=== PATIENT | male | born 1930 | race Caucasian/White ===

== ENCOUNTER → 2016-11-17 | Outpatient (CLI) | payer MEDICARE, OTHER ==
[~2016-11-17] MED LIST: ACETAMINOPHEN PO; AMLODIPINE BESYL5 MG PO; ASPIRIN PO; ASPIRIN81 MG PO; BENZONATATE PO; CARAFATE PO; CARAFATE1 G PO; CARDIZEM SR PO; CERTAGEN PO; CYANOCOBALAM1000 MCG PO; DUTOPROL 100-11 EACH PO; ELIQUIS2.5 MG PO; FERRO-TIME325 MG PO; FERROUS GLUCON324 MG PO; FERROUS SULFATE PO; FINASTERIDE5 M1 PO; FLAGYL PO; FOLIC ACID1 MG PO; FUROSEMIDE40 MG PO; GLUCOPHAGE500 MG PO; GLUCOTROL PO; GLUCOTROL XL PO; HYDRALAZINE HCL25 MG PO; HYDRALAZINE HCL50 MG PO; IMDUR-ER60 M2 PO; KCL PO; LASIX PO; LOPRESSOR PO; LOVASTATIN10 MG PO; LOVENOX40 MG/0.4 INJ; METFORMIN PO; METOPROLOL TAR25 MG PO; MEVACOR PO; MEVACOR10 MG PO; MULTI VITAMIN1 EACH PO; NORVASC PO; PANTOPRAZOLE SO40 MG PO; PLAVIX PO; POTASSIUM CHLO20 ME1 PO; PRILOSEC PO; PRILOSEC20 MG PO; PROSCAR5 MG PO; PROTONIX PO; TOPROL XL PO; VIT B-12 PO; VITAMIN B 12 PO; VITAMIN B-121000 MCG PO; VITAMIN B-1250 MCG PO; ZYLOPRIM PO; ZYLOPRIM100 MG PO
--- NOTE | ~2016-11-17 | US10 ---
[id number] [facility] [address] [place], [place] [address] [id number] O MR#: [id number] Acc #: [id number] NAME: GILBERTO ABRAHAM : 1930 SEX: M STUDY DATE/TIME: 11/17/2016 10:52 UNIT: [facility] ROOM: STUDY DESCRIPTION: US Aorta Complete Attending Physician: Nikos Wolfe M.D. Referring Physician: Nikos Wolfe M.D. Ordering Physician: Nikos Wolfe M.D. Primary Care Physician: Nikos Wolef M.D. MEDICAL IMAGING REPORT This report is preliminary unless electronic signature is present EXAM Ultrasound the abdominal aorta 11/17/2016 INDICATIONS 86-year-old male with a history of abdominal aortic aneurysm. Screening. Diabetes. TECHNIQUE Sonographic imaging of the abdomen was performed utilizing sequeira-scale color Doppler and spectral analysis. Attention was directed to the abdominal aorta. No comparison studies. FINDINGS The proximal abdominal aorta measures up to 2.6 cm the mid abdominal aorta up to about 2.3 cm and the distal abdominal aorta up to about 3 cm. There is atherosclerotic plaquing distally. Appropriate waveforms present within the aorta. Iliac vessels demonstrate perhaps mild ectasia of the left iliac artery. IMPRESSION 1. Borderline aneurysmal dilatation of the distal abdominal aorta measuring 3 cm. 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 Dictated by... Brenden Foss M.D. THIS IS AN ELECTRONICALLY VERIFIED REPORT Brenden Foss M.D. at 11/18/2016 10:37 AM JAZMIN/[email or web address] TD: 11/18/2016 02:10 JOB #: [id number] MEDICAL IMAGING REPORT Page 1 of 1 COPY
== END | disposition home or self-care (01) ==
LOC: CGUS 10:17
DX: I71.4 Abdominal aortic aneurysm, without rupture (principal); I77.89 Other specified disorders of arteries and arterioles
CPT/HCPCS: 76770